=== PATIENT | female | born 2000 | race Asian ===

== ENCOUNTER 2025-10-23 12:50 | Emergency (ER) | payer MEDICAID ==
[~2025-10-23] VITALS: Ht 165.1 cm; Wt 54.5 kg
[2025-10-23 13:06] VITALS: TEMP 97.7
[2025-10-23] MEDS: MORPHINE SULFATE 2 MG/ML SYRINGE IVP ONE (14:18)
[2025-10-23] MEDS: SODIUM CHLORIDE 0.9% 1,000 ML IV ONE (14:18)
[2025-10-23 14:34] LABS: PLATELET COUNT (AUTO) 295 K/uL (150-450); RED BLOOD CELL COUNT(AUTO) 5.11 MIL/uL (4.00-5.20); RED CELL DISTRIBUTION WIDTH 12.8 % (11.5-14.5); WHITE BLOOD COUNT (AUTO) 5.7 K/uL (4.5-11.0)
[2025-10-23 14:47] LABS: APPEARANCE,URINE HAZY (CLEAR); GLUCOSE, URINE (UA) NEGATIVE (NEGATIVE); LEUKOCYTE ESTERASE ,URINE NEGATIVE (NEGATIVE); NITRATE,URINE NEGATIVE (NEGATIVE); OCCULT BLOOD,URINE NEGATIVE (NEGATIVE); SPECIFIC GRAVITIY, URINE 1.009 (1.003-1.030)
[2025-10-23 15:01] LABS: CALCIUM, TOTAL 9.0 mg/dL (8.8-10.5); CREATININE 0.43 mg/dL (0.60-1.30); GLOMERULAR FILTR. RATE CALC > 60 mL/min (>60); GLUCOSE,RANDOM 97 mg/dL (70-110); SODIUM SERUM 139 mmol/L (136-145); UREA NITROGEN, BLOOD 6 mg/dL (7-18)
[2025-10-23 15:20] LABS: ASPARTATE AMINOTRANSFERASE 19.0 U/L (15-37); HCG,QUANTITATIVE 2.0 mIU/mL (0-6); TOTAL PROTEIN, SERUM 8.3 g/dL (6.4-8.2)
[2025-10-23] MEDS ORDERED: FAMO40TA76 PO (16:48)
[2025-10-23 17:00] VITALS: BP 112/66; PULSE 64; RESP 16; O2SAT 100
== END 2025-10-23 17:14 | disposition home or self-care (01) ==
LOC: EMS 12:50
DX: K80.20 Calculus of gallbladder without cholecystitis without obstruction (principal); R10.13 Epigastric pain; N89.8 Other specified noninflammatory disorders of vagina
CPT/HCPCS: 99285; 96374; 76705; 96361; 80048; 80076; 81003; 83690; 84702; 85025; 36415; J2270; J7030